=== PATIENT | female | born 1990 | race Caucasian/White ===

== ENCOUNTER 2021-05-29 16:44 | Inpatient (IN) | payer BC, OTHER ==
[~2021-05-29] VITALS: Ht 165.1 cm; Wt 97.5 kg
[~2021-05-29 16:44] MED LIST: COLACE 100MG C100 MG PO; IBUPROFEN600 MG PO; LABETALOL HCL200 MG PO; LORTAB 5-325 M1 EACH PO; PRILOSEC10 M1 PO
[2021-05-29] MEDS ORDERED: PEPCID20 MG PO (18:06)
[2021-05-29] MEDS ORDERED: PRENATAL VITAM1 EAC3 PO (18:07)
[2021-05-29 18:38] LABS: HEMOGLOBIN 11.3 gm/dl (12.3-15.3); RED BLOOD COUNT 4.09 M/UL (4.00-5.10); WHITE BLOOD COUNT 14.3 K/UL (4.5-11.0)
[2021-05-30] MEDS ORDERED: IBUPROFEN600 MG PO (10:55)
[2021-05-30] MEDS ORDERED: DOCUSATE SODIU100 MG PO (10:55)
[2021-05-31 06:29] LABS: HEMOGLOBIN 11.8 gm/dl (12.3-15.3)
[2021-05-31] MEDS ORDERED: LABETALOL HCL100 MG PO (10:34)
== END 2021-05-31 17:02 | disposition home or self-care (01) | DRG 807 ==
LOC: GENOP 16:44 → OB 19:40
PROVIDERS: Obstetrics & Gynecology; ADMIT Obstetrics & Gynecology
PROC: 10E0XZZ Delivery of Products of Conception, External Approach (ICD-10-PCS; principal; 2021-05-30)
PROC: 10907ZC Drainage of Amniotic Fluid, Therapeutic from Products of Conception, Via Natural or Artificial Opening (ICD-10-PCS; 2021-05-30)
PROC: 3E033VJ Introduction of Other Hormone into Peripheral Vein, Percutaneous Approach (ICD-10-PCS; 2021-05-30)
PROC: 10H07YZ Insertion of Other Device into Products of Conception, Via Natural or Artificial Opening (ICD-10-PCS; 2021-05-30)
PROC: 4A1H7CZ Monitoring of Products of Conception, Cardiac Rate, Via Natural or Artificial Opening (ICD-10-PCS; 2021-05-30)
PROC: 10H073Z Insertion of Monitoring Electrode into Products of Conception, Via Natural or Artificial Opening (ICD-10-PCS; 2021-05-30)
PROC: 3E0234Z Introduction of Serum, Toxoid and Vaccine into Muscle, Percutaneous Approach (ICD-10-PCS; 2021-05-30)
DX: O48.0 Post-term pregnancy (principal); Z37.0 Single live birth; O13.4 Gestational [pregnancy-induced] hypertension without significant proteinuria, complicating childbirth; O69.81X0 Labor and delivery complicated by cord around neck, without compression, not applicable or unspecified; Z3A.40 40 weeks gestation of pregnancy; Z23 Encounter for immunization
CPT/HCPCS: 36415; 81001; 82800; 85014; 85018; 85025; 86900; 86901; 90471; 90472; 90707; 90715; G0378; J2590